=== PATIENT | male | born 1985 | race Caucasian/White ===

== ENCOUNTER 2016-09-24 15:56 | Emergency (ER) | payer SELFPAY ==
[~2016-09-24] VITALS: Ht 175.3 cm; Wt 75.5 kg
[2016-09-24 15:59] VITALS: Ht 175.3 cm; Wt 75.5 kg
[2016-09-24] MEDS ORDERED: AZIT250T6 PO (16:14)
[2016-09-24] MEDS ORDERED: BENZ100C70 PO (16:14)
[2016-09-24] MEDS ORDERED: AZIT250T94 PO (16:15)
--- NOTE | 2016-09-24 18:04 | ERA ---
ER Documentation Chief Complaint Date/Time DATE: 09/24/16 TIME: 17:58 Chief Complaint Complains of cough x 5 days HPI This is a 31-year-old male presenting with a chief complaint of cough, pharyngitis and head pressure 5 days. Describes a cough is dry. Patient denies any previous medical conditions, fever, vomiting, nausea, diarrhea, headache, meningismus, sweats, chills, rigors, hemoptysis, breathlessness, dyspnea, chest pain, recent unintentional weight loss, drug use, history of cancer, change in voice, or taken any medications to relieve the symptoms. Patient has no other complaints at this time and describes no other associated manifestations. Patient's vaccination status is up-to-date. ROS All systems reviewed and are negative except as per history of present illness. Medications Home Meds Active Scripts Azithromycin* (Zithromax*) 250 Mg Tablet, 250 MG PO .ZPACK DIRECTED, #6 TAB TAKE 500 MG (2 TABS) THE FIRST DAY THEN 250 MG (1 TAB) DAYS 2-5 Prov:VIRGINIA GAFFNEY PA-C 09/24/16 Benzonatate* (Tessalon Perle*) 100 Mg Capsule, 100 MG PO Q8H Y for COUGH for 5 Days, CAP Prov:VIRGINIA GAFFNEY PA-C 09/24/16 Azithromycin* (Azithromycin*) 250 Mg Tablet, 250 MG PO DAILY, #4 TAB Prov:VIRGINIA GAFFNEY PA-C 09/24/16 Allergies Allergies: Coded Allergies: No Known Allergy (Unverified , 09/24/16) Physical Exam Vitals Vital Signs Date Time Temp Pulse Resp B/P Pulse Ox O2 Delivery O2 Flow Rate FiO2 09/24/16 15:59 98.6 91 20 107/55 96 Physical Exam Const: Healthy-appearing. Well-nourished. Well-developed. No acute distress. Head: Normocephalic, Atraumatic. Eyes: Non-injected; No scleral erythema, discharge or foreign body. EOMI and JAMAR bilaterally. Ears: Normal External Ears, EACs clear, TM retracted bilaterally without erythema. Light cone reflex visualized bilaterally. Nose: Mild maxillary sinus tenderness. Normal nose without discharge, septal deviation. Oral: Postnasal drip visualized in oropharynx. No oral edema visualized. Mucous membranes moist and pink. Neck: No cervical lymphadenopathy, masses or goiter palpated. Full range of motion. Trachea midline. Supple ~ No meningismus. Pulm: Good air movement in upper and lower respiratory tracts. No dyspnea, stridor, tripoding or drooling. Clear to auscultation bilaterally. Cardio: Regular rate and rhythm; No murmurs, gallops or rubs auscultated. No JVD grossly observed. Radial and posterior tibial pulses 2+ bilaterally. No cyanosis. Capillary refill less than 2 seconds. Abd: Soft, non tender, non distended. No guarding, masses. Normal bowel sounds. No McBurney's point tenderness. MS: Normal motor strength, normal tone with gross examination. Skin: No petechiae or rashes. No ulcer, induration, jaundice. Good turgor. Back: No midline, flank or CVA tenderness. Ext: No cyanosis, or edema. Normal movement of all extremities grossly observed. Neur: Awake, alert and oriented x3. Neurovascularly intact bilaterally. Psych: Normal Mood and Affect. Procedures/MDM This is a 31-year-old male presented with a chief complaint of cough, pharyngitis as described in history. Physical exam was remarkable for retracted tympanic membranes bilaterally, mild maxillary sinus tenderness, and postnasal drip visualized in the oropharynx. Pulmonary exam was unremarkable. Patient's most likely diagnosis is acute bronchitis versus sinusitis versus viral pharyngitis. I very little suspicion for meningitis, pneumonia, acute coronary syndrome, asthma, pulmonary embolism, pertussis, or other serious bacterial infections. I no longer have a concern for endangerment of the airway. Patient will be discharged with azithromycin for possible infection and Tessalon Perles for symptomatic relief. Patient's vitals are stable and his current condition is appropriate for discharge. Patient will be discharged at this time with discharge instructions return precautions. Departure Diagnosis: Primary Impression: Acute bronchitis Qualified Code: J20.9 - Acute bronchitis, unspecified organism Additional Impressions: Post-nasal drip Sinusitis Qualified Code: J01.80 - Acute non-recurrent sinusitis of other sinus Pharyngitis Qualified Code: J02.9 - Pharyngitis, unspecified etiology Condition: Stable Patient Instructions: Acute Bronchitis Referrals: [facility] YOU HAVE RECEIVED A MEDICAL SCREENING EXAM AND THE RESULTS INDICATE THAT YOU DO NOT HAVE A CONDITION THAT REQUIRES URGENT TREATMENT IN THE EMERGENCY DEPARTMENT. FURTHER EVALUATION AND TREATMENT OF YOUR CONDITION CAN WAIT UNTIL YOU ARE SEEN IN YOUR DOCTORS OFFICE WITHIN THE NEXT 1-2 DAYS. IT IS YOUR RESPONSIBILITY TO MAKE AN APPOINTMENT FOR FOLOW-UP CARE. IF YOU HAVE A PRIMARY DOCTOR --you should call your primary doctor and schedule an appointment IF YOU DO NOT HAVE A PRIMARY DOCTOR YOU CAN CALL OUR PHYSICIAN REFERRAL HOTLINE AT IF YOU CAN NOT AFFORD TO SEE A PHYSICIAN YOU CAN CHOSE FROM THE FOLLOWING [facility] [id number] [facility] [address] [facility] [address] [facility] [address] [facility] [address] [facility]. [address] Additional Instructions: Follow up with your PCP within the next 1-3 days for a more thorough evaluation and a possible referral to a specialist. Return the the emergency department immediately if symptoms worsen or change. If you have any questions regarding medications, ask your pharmacist or us before you leave. If any adverse reactions occur while taking your medications, discontinue the treatment and return to the emergency department immediately. Take your medications as directed, and complete the entire course of treatment. VIRGINIA GAFFNEY PA-C Sep 24, 2016 18:04
== END 2016-09-24 16:18 | disposition home or self-care (01) ==
LOC: E/R 15:56
DX: J20.9 Acute bronchitis, unspecified (principal); R09.82 Postnasal drip; J01.80 Other acute sinusitis; J02.9 Acute pharyngitis, unspecified
CPT/HCPCS: 99284